=== PATIENT | male | born 1990 | race American Indian/Alaskan Native ===

== ENCOUNTER 2021-06-24 13:20 | Emergency (ER) | payer OTHER ==
[2021-06-24 16:33] VITALS: BP 158/56
--- NOTE | 2021-06-24 16:34 | Emergency Department Report ---
ED Back Pain/Injury HPI - General Stated Complaint: BACK PAIN - History of Present Illness Initial Comments: Patient presents with nontraumatic left back pain. The pain radiates down the left leg. Pain is in the lower back on the left and in the hip area. It is a sharp and stabbing pain. He reports having some tingling and burning pain down the posterior aspect of the left leg. The pain in the left leg goes to the knee. It does not extend below the knee. There is no saddle anesthesia. He has no numbness in the leg. Has not noticed any weakness. Again, there is no trauma. Pain is constant and aching. It is worse with walking and sitting. He states he has been kind of leaning to the right because of the pain. This been going on for couple of days now. - Related Data Previous Rx's Medication Instructions Recorded Last Taken Type Ibuprofen [Motrin] 600 mg PO Q8H PRN #30 tablet 06/24/21 Unknown Rx methylPREDNISolone [Medrol 4MG 4 mg PO DAILY #1 tab.ds.pk 06/24/21 Unknown Rx DOSEPAK (21 tabs)] Allergies Allergy/AdvReac Type Severity Reaction Status Date / Time No Known Allergies Allergy Unverified 06/24/21 16:33 ED Review of Systems ROS: Stated complaint: BACK PAIN Other details as noted in HPI Comment: All other systems reviewed and negative Constitutional: denies: fever Eyes: denies: vision change ENT: denies: throat pain Respiratory: denies: cough Cardiovascular: denies: chest pain Endocrine: denies: unexplained weight loss Gastrointestinal: denies: abdominal pain Genitourinary: denies: dysuria Musculoskeletal: as per HPI Skin: denies: rash Neurological: denies: headache Hematological/Lymphatic: denies: easy bruising ED Past Medical Hx - Past Medical History Previous Medical History?: No - Family History Family history: no significant - Medications Home Medications: Home Medications Medication Instructions Recorded Confirmed Last Taken Type Ibuprofen [Motrin] 600 mg PO Q8H PRN #30 tablet 06/24/21 Unknown Rx methylPREDNISolone [Medrol 4MG 4 mg PO DAILY #1 tab.ds.pk 06/24/21 Unknown Rx DOSEPAK (21 tabs)] ED Physical Exam - General Limitations: No Limitations, Other ( Pulse ox noted and normal) General appearance: alert, in no apparent distress - Head Head exam: Present: atraumatic, normocephalic, normal inspection - Eye Eye exam: Present: normal appearance, EOMI - ENT ENT exam: Present: normal exam, normal orophraynx - Neck Neck exam: Present: normal inspection. Absent: meningismus - Respiratory Respiratory exam: Present: normal lung sounds bilaterally. Absent: respiratory distress - Cardiovascular Cardiovascular Exam: Present: regular rate, normal rhythm - GI/Abdominal GI/Abdominal exam: Present: soft. Absent: tenderness - Extremities Exam Extremities exam: Present: normal capillary refill - Back Exam Back exam: Present: paraspinal tenderness ( left SI area). Absent: CVA tenderness (R), CVA tenderness (L) - Neurological Exam Neurological exam: Present: alert, oriented X3, CN II-XII intact, normal gait, motor sensory deficit, reflexes normal, other ( negative straight leg raise) - Psychiatric Psychiatric exam: Present: normal affect, normal mood - Skin Skin exam: Present: warm, dry ED Course Vital Signs 06/24/21 06/24/21 16:27 16:38 Temperature 98.3 F Pulse Rate 79 71 Respiratory 16 16 Rate Blood Pressure 158/56 158/56 [Left] O2 Sat by Pulse 99 100 Oximetry - Reevaluation(s) Reevaluation #1: 06/26/21 08:27 patient was discharged ED Medical Decision Making - Medical Decision Making patient presents with back pain and symptoms consistent with sciatic nerve impingement. He has no neurologic deficit with suggest cord injury or cauda equina. There is no trauma to suggest acute fracture or subluxation or traumatic disc herniation. He has no fevers or chills. I am not concerned for epidural abscess. He has no history of red flag concerns or IV drug abuse. Critical care attestation.: If time is entered above; I have spent that time in minutes in the direct care of this critically ill patient, excluding procedure time. ED Disposition Clinical Impression: Sciatica of left side Disposition: 01 HOME / SELF CARE / HOMELESS Is pt being admited?: No Condition: Stable Instructions: Sciatica Additional Instructions: ICE. SIT UPRIGHT. SIT ON A SOFT SURFACE. Prescriptions: methylPREDNISolone [Medrol 4MG DOSEPAK (21 tabs)] 4 mg PO DAILY #1 tab.ds.pk Ibuprofen [Motrin] 600 mg PO Q8H PRN #30 tablet PRN Reason: Pain Referrals: CARBUCCIA,ISAC, MD [Staff Physician] - 3-5 Days
== END 2021-06-24 16:38 | disposition home or self-care (01) ==
LOC: ED 13:20
DX: M54.32 Sciatica, left side (principal)
CPT/HCPCS: 99281